=== PATIENT | female | born 1970 | race Caucasian/White ===

== ENCOUNTER → 2016-08-12 | Outpatient (CLI) | payer BC ==
[~2016-08-12] MED LIST: CIPRO 500MG TA500 MG PO; FLONASE 50 MCG16 GM; MEDROL 4MG. DOSE4 MG PO; PREDNISONE 20MG20 MG PO; PROAIR HFA0.09 MG/AC IH; PROMETHAZINE D473 ML PO; TAMIFLU 75MG CA75 MG PO; TESSALON PERLE100 MG PO; TOPIRAMATE 25MG25 MG PO; VENTOLIN H0.09 MG/AC IH
--- NOTE | 2016-08-12 16:07 | RADIOLOGY REPORT PS360 ---
US PELVIS-TRANSVAGINAL ONLY HISTORY: Dysfunctional uterine bleeding DUB COMPARISON: None FINDINGS: Uterus is enlarged at 10 x 5 x 6 cm. Endometrium is thickened at 17 mm. No obvious uterine mass. The left ovary is 4 x 2 cm and contains a 13 mm cyst. The right ovary is 2.4 x 2.8 cm and contains a 15 mm cyst. No cul-de-sac fluid. IMPRESSION: Enlarged uterus with thickened endometrium and small bilateral ovarian cyst
== END ==
LOC: RAD 13:30
DX: N93.8 Other specified abnormal uterine and vaginal bleeding (principal)

== ENCOUNTER 2017-01-09 10:12 | Emergency (ER) | payer BC ==
[~2017-01-09] VITALS: Ht 167.6 cm; Wt 108.9 kg
[~2017-01-09 10:12] MED LIST changes: +KEFLEX250 M1 PO; +SPRINTEC 35 MCG1 TAB PO
--- OUTSIDE RECORDS SUMMARY | 2017-01-09 10:23 | External Medical Summary Rpt ---
Author Author , Organization [employer] Address Unknown Phone Unavailable Care Team Providers Care Lamination Builder Name Role Phone Terra Bautista MD, Unavailable Unavailable Terra Bautista MD Purpose Continuity of Care Document - 07-15-2013 through 2016 Problems Code Diagnosis DOS Provider Status 465.9 465.9 ACUTE 07-15-2013 [place] URI NOS [facility] 493.90 493.90 07-15-2013 [place] ASTHMA, [facility] S91.119A LACERATION W/O FB OF UNSP TOE W/O DAMAGE TO NAIL, INIT Allergies, Adverse Reactions, Alerts Type Drug Allergy Adverse Reaction to Substance Substance Reaction Severity SULFA (sulfonamide) I-RASH Unknown Medications Na ND Rx Da Fi Fi Am Da Di Ph RX Ph St me C No te ll ll ou ys ag ar # ys at rm s nt no ma ic us Or Da si cy ia de te s n re d SO 00 12 0 No DI 40 -0 UM 97 8- Lo 98 20 ng CH 30 13 er LO 9 RI Ac DE ti ve 0. 9% SO LELE TI ON Sa 63 12 0 No li 80 -0 ne 70 8- Lo 10 20 ng Fl 07 13 er us 5 h Ac 10 ti ML ve Sy ri ng e IP 00 12 0 No RA 48 -0 T- 70 8- Lo AL 20 20 ng BU 10 13 er T 1 0. Ac 5- ti 3( ve 2. 5) MG /3 ML NM 00 12 0 No ED 05 -0 NI 40 8- Lo SO 01 20 ng NE 82 13 er 0 20 Ac ti MG ve TA BL ET Vital Signs 07-15-2013 17:41 Name Value Interpretat Reference Comment ion Range Body 99 [degF] Temperature BP 62 mm[Hg] Diastolic BP Systolic 109 mm[Hg] Heart 72 /min Rate/Pulse O2% 96 % Respiratory 20 /min Rate 07-15-2013 16:07 Name Value Interpretat Reference Comment ion Range BP 71 mm[Hg] Diastolic BP Systolic 135 mm[Hg] Heart 83 /min Rate/Pulse Respiratory 20 /min Rate 07-15-2013 15:27 Name Value Interpretat Reference Comment ion Range O2% 98 % Results Labs Lab Lab Date Result Refere Interp Status Commen Order Detail nces retati t Range on BASIC METABOLIC PANEL (07-15-2013 15:50) Glucose 92 74-106 complet 013 mg/dL ed Bld-mCn 15:50 c BUN 12 7-18 complet Bld-mCn 013 mg/dL ed c 15:50 Creat 1.0 0.6-1.0 complet SerPl-m 013 mg/dL ed Cnc 15:50 Creat 134 50-200 complet Cl 013 ML/MIN ed predict 15:50 ed SerPl C-G-vRa te GFR/BSA 61 59- complet .pred 013 ML/MIN ed SerPl 15:50 Schwart z-vRate Sodium 141 136-145 complet SerPl-s 013 mmoL/L ed Cnc 15:50 Potassi 4.2 3.5-5.1 complet um 013 mmoL/L ed SerPl-s 15:50 Cnc Chlorid 109 98-107 complet e 013 mmoL/L ed SerPl-s 15:50 Cnc CO2 26 21.0-32 complet SerPl-s 013 mmoL/L .0 ed Cnc 15:50 Calcium 8.0 8.5-10. complet 013 mg/dL 1 ed SerPl-m 15:50 Cnc CBC with AUTO DIFF (07-15-2013 15:50) WBC # 07-15- 5.7 4.8-10. complet Bld 013 K/MM3 8 ed Auto 15:50 RBC # 4.48 4.2-5.4 complet Bld 013 M/mm3 ed Auto 15:50 Hgb 13.4 12.2-16 complet Bld-mCn 013 g/dL .2 ed c 15:50 Hct Fr 40.5 % 37.0-47 complet Bld 013 .0 ed 15:50 MCV RBC 07-15-2 90.3 fl 82.2-97 complet 013 .8 ed 15:50 MCH RBC 08-2 30.0 pg 27-31.2 complet Qn 013 ed Auto 15:50 MEAN 07-15-2 33.2 31.8-35 complet CORPUSC 013 g/dl .4 ed ULAR 15:50 HGB CONC RDW RBC 2 14.5 % 11.5-17 complet Auto 013 .5 ed 15:50 Platele 2 201 142-424 complet t Bld 013 K/mm3 ed Ql 15:50 Manual MEAN 8.9 fl 7.4-10. complet PLATELE 013 4 ed T 15:50 VOLUME Granulo 2 69.4 % 37.0-80 complet cytes 013 .0 ed Fr Bld 15:50 Auto LYMPH % 08-2 22.3 % 10-50.0 complet 013 ed 15:50 Monocyt 07-15-2 5.2 % 1.7-9.3 complet es Fr 013 ed Bld 15:50 Auto Eosinop 08-2 2.4 % 0.1-12. complet hil Fr 013 0 ed Bld 15:50 Auto Basophi 08-2 0.6 % 0.1-2.0 complet ls Fr 013 ed Bld 15:50 Auto Granulo 08-2 3.9 1.8-7.8 complet cytes # 013 K/mm3 ed Bld 15:50 Auto Lymphoc 08-2 1.3 0.7-4.5 complet ytes Fr 013 K/mm3 ed Bld 15:50 Auto Monocyt 08-2 0.3 0.1-1.0 complet es # 013 K/mm3 ed Bld 15:50 Auto Eosinop 08-2 0.1 0.0-0.4 complet hil # 013 K/mm3 ed Bld 15:50 Auto Basophi 08-2 0.0 0-0.2 complet ls # 013 K/MM3 ed Bld 15:50 Auto Encounters Encounter Start End Date Code Location Performer Type Date Emergency MAGALY Bautista MD (ER) 3 15:50 3 17:45 [facility]
--- OUTSIDE RECORDS SUMMARY | 2017-01-09 10:23 | External Medical Summary Rpt ---
Author Author , Organization [employer] Address Unknown Phone Unavailable Purpose Continuity of Care Document - 08-30-2016 through 2016 Immunization Name Date Route CVX Reacti Commen Provid Is Given on t er Refuse d Influe 140 Histor WALMAR No nza, 2017 uscupr ical T591 P-Free r Inform ation - Source Unspec ified
--- OUTSIDE RECORDS SUMMARY | 2017-01-09 10:23 | External Medical Summary Rpt ---
Author Author , Organization [employer] Address Unknown Phone Unavailable Purpose Continuity of Care Document - 08-30-2016 through 2016 Immunization Name Date Route CVX Reacti Commen Provid Is Given on t er Refuse d Influe 140 Histor WALMAR No nza, 2017 uscuco ical T591 P-Free r Inform ation - Source Unspec ified
--- OUTSIDE RECORDS SUMMARY | 2017-01-09 10:23 | External Medical Summary Rpt ---
Author Author , Organization [employer] Address Unknown Phone Unavailable Care Team Providers Care Manager State Name Role Phone Terra Bautista MD, Unavailable Unavailable Terra Bautista MD Purpose Continuity of Care Document - 07-15-2013 through 2016 Problems Code Diagnosis DOS Provider Status 465.9 465.9 ACUTE 07-15-2013 [place] URI NOS [facility] 493.90 493.90 07-15-2013 [place] ASTHMA, [facility] S91.119A LACERATION W/O FB OF UNSP TOE [...] 3( ve 2. 5) MG /3 ML [place] 00 12 0 No ED 05 -0 [...] Bautista MD (ER) 3 15:50 3 17:45 [facility]
--- OUTSIDE RECORDS SUMMARY | 2017-01-09 10:23 | External Medical Summary Rpt ---
Author Author RITA Mcgrath, RITA Mcgrath Organization [employer] Address Unknown Phone Unavailable
[2017-01-09 10:33] VITALS: BP 116/70
== END 2017-01-09 10:33 | disposition home or self-care (01) ==
LOC: UTC 10:12 → ER 10:12 → UTC 10:20
DX: S91.115D Laceration without foreign body of left lesser toe(s) without damage to nail, subsequent encounter (principal)

== ENCOUNTER 2017-04-04 10:30 | Emergency (ER) | payer BC ==
[~2017-04-04] VITALS: Ht 167.6 cm; Wt 129.7 kg
[2017-04-04] MEDS ORDERED: BROMFED DM COU118 ML PO (10:54)
[2017-04-04] MEDS ORDERED: PROVENTIL0.09 MG/A1 IH (10:54)
--- NOTE | 2017-04-04 10:54 | Urgent Treatment Center Report ---
History of Present Issue Date/Time Seen by Provider 04/04/17 1042 Visit Reason Pt arrived:Walked Presenting Problem:PT STATES HEAD CONGESTION AND COUGH FOR TWO DAYS Location if Accident: Onset of symptoms date/time:/ or onset unknown for:MEDICAL HX UNKNOWN Have you (or family members/close friends) recently traveled outside the [place]? N If Yes, where/when: Have you had exposure to infectious disease within the past month? TB? Other? Specify: c/o waking up yesterday with sore throat, PND, nonproductive cough, rhinorrhea, nasal congestion. Hx of asthma and out of albuterol. Denies SOA, wheezing. Takes zyrtec daily. Hx of seasonal allergies. Feeling feverish without a fever and achy this morning. Ibuprofen helps. Hx of polyps during childhood and an unknown sinus surgery 3 years ago. Asking for local ENT because would like to follow up with one based on hx. Source patient Exam Limitations no limitations ALLERGIES Coded Allergies: amoxicillin (Intermediate, I-HIVES 03/29/16) Sulfa (Sulfonamide Antibiotics) (Mild, I-RASH 03/29/16) Home Medications Reported Medications NORGESTIMATE-ETHINYL ESTRADIOL (Sprintec 28 Day Tablet) 1 TAB PO DAILY History Medical History General CAD? No Angina: Yes MA: No Hypertension? No Hyperlipidemia? No CHF? No DVT? No PE? No COPD? No Asthma? Yes Anemia? No GERD? No Gastric ulcers? No GI Bleed? No Hernia? Yes Thyroid Problems? No Hypothyroidism? No CVA? No Seizures? No Diabetes? No Renal Insuffiency? No UTI? Yes Stones? No GB Disease: Yes Nephritic Syndrome? No Asplenia? No Hepatitis? No Sickle Cell Disease? No Arthritis? No Migraines? No Cataracts? No Glaucoma? No MRSA? No HIV? No TB? No Anxiety? No Depression? No Cancer? No More? No Immunization HX DT/Tetanus NOT SURE Flu Pneumonia Never Had Surgical Hx Previous Surgery?Y T&A WISDOM TEETH SINUS HEEL SPUR/PLANTAR FASCIAT ITIS RT FOOT GALLBLADDER Family History Family HX Diabetes Yes CAD Yes Hypertension Yes Hyperlipidemia Yes Cancer Yes TB No Social History Smoking Hx Smoker: Never Smoker Tobacco: No Alcohol Alcohol: No Review of Systems All Other Systems Reviewed and Negative Constitutional see HPI Eyes denies drainage ENT denies: ear pain, ear discharge, throat swelling. Respiratory see HPI Cardiovascular denies chest pain Gastrointestinal denies no symptoms reported Skin denies rash Psychiatric/Neurological denies headache Physical Exam Vital Signs Vital Signs Date Time Temp Pulse Resp B/P Pulse O2 O2 Flow FiO2 Ox Delivery Rate 04/04 1037 97.9 89 20 144/86 98 General Appearance no apparent distress, obese Eye Exam - bilateral eye normal exam Ear, Nose, Throat sravanthi EACs and TMs normal, thick PND, no pharyngeal erythema, mild nasal congestion sravanthi Neck non-tender, supple Respiratory Status Yes: trachea midline, chest symmetrical, non productive cough. No: respiratory distress, use of accessory muscles, productive cough. Lung Sounds anterior: lungs clear. posterior: lungs clear. bilateral: lungs clear. Cardiovascular regular rate/rhythm, no peripheral edema, no murmur Neurologic alert, oriented x 3 Mental status normal mood/affect Skin normal color, warm/dry Lymphatic no adenopathy Medical Decision Making LABS/Meds/Orders Pt receiving controlled substance in ED? No Departure Departure Time of Disposition 1050 Disposition DC Home or Self Care(routine) Clinical Impression Primary Impression: Upper respiratory virus Condition STABLE Referrals Valeri FLORES, [place] Number you requested. She comes to [facility] speciality clinic. Albert FLORES,Eris Pond Number you requested. He comes to [facility] speciality clinic. MARCUS RODRIGUEZ Number you requested. He is located in [place]. Gerardo FLORES,A.C. (Family) Follow up IMMEDIATELY for new or worsening symptoms OR no noticeable improvement over the next 48-72 hours. 911 for difficulty breathing or swallowing. Patient Instructions DI for Viral Upper Respiratory Infection -- Adult Additional Instructions * No sign of bacterial infection. Likely viral. Virus can take 7-14 days to run their course * Monitor Temp. Tylenol every 4 hours as needed and/or ibuprofen every 6 hours as needed (as long as your primary care doctor has told you that it is ok to take both) for fever/aches/pain. ER if fever no less than 101 despite tylenol and ibuprofen * Encourage fluids, water, gatorade, powerade, pedialyte if /toddler/child * warm salt water gargles * warm fluids * sore throat lozenges * sleep elevated * humidifier/vaporizer * Bromfed may cause drowsiness. Know how it effects you (or your child) before driving, caring for small children, or sending your child to school. No other antihistamines/allergy medications while taking bromfed. * I included the number of local ENT specialist as you requested due to your history of polyps and your sinus surgery 3 years ago. Call them and schedule follow up appointments. * I sent you a refill on your albuterol inhaler. As an asthmatic, it is always a good idea to keep one of these handy. Discharge Counseling Counseled pt/family regarding diagnosis, medications/RX, home care, follow up needs Prescriptions Current Visit Scripts ALBUTEROL (Proventil Hfa Inhaler) 1-2 PUFF IH Q4-6H PRN PRN SOA, wheezing #1 CAN D-METHORPHAN HB/P-EPD HCL/BPM (Bromfed Dm Cough Syrup) 10 ML PO QIDP PRN cough #240 ML at 1103
[2017-04-04 10:55] VITALS: BP 144/86
[2017-04-06] MEDS ORDERED: FLEXERIL10 MG PO (17:44)
[2017-04-06] MEDS ORDERED: NAPROSYN 500MG500 MG PO (17:44)
== END 2017-04-04 10:57 | disposition home or self-care (01) ==
LOC: UTC 10:30
DX: J06.9 Acute upper respiratory infection, unspecified (principal)

== ENCOUNTER → 2017-05-06 | Outpatient (CLI) | payer BC | LOC: RT 09:59 | DX: J30.1 Allergic rhinitis due to pollen (principal) ==

== ENCOUNTER → 2017-05-23 | Outpatient (CLI) | payer BC ==
[~2017-05-23] MED LIST changes: +BROMFED DM COU118 ML PO; +FLEXERIL10 MG PO; +NAPROSYN 500MG500 MG PO; +PROVENTIL0.09 MG/A1 IH
== END ==
LOC: LAB 16:00
DX: J30.89 Other allergic rhinitis (principal)

== ENCOUNTER → 2017-07-07 | Outpatient (CLI) | payer BC | LOC: SL 15:18 | DX: G47.30 Sleep apnea, unspecified (principal) ==